=== PATIENT | female | born 2000 | race African-American/Black ===

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

== ENCOUNTER 2021-04-03 10:53 | Emergency (ER) | payer OTHER ==
[~2021-04-03] VITALS: Ht 160 cm; Wt 83.4 kg
[~2021-04-03 10:53] MED LIST changes: +AMOXICILLIN500 MG PO
[2021-04-03 12:19] LABS: URINE BILIRUBIN - DIPSTICK NEGATIVE (NEGATIVE); URINE BLOOD DIPSTICK NEGATIVE (NEGATIVE); URINE COLOR YELLOW; URINE GLUCOSE - DIPSTICK NEGATIVE (NEGATIVE); URINE KETONE NEGATIVE (NEGATIVE); URINE LEUK ESTERASE NEGATIVE (NEGATIVE); URINE NITRITE - DIPSTICK NEGATIVE (Negative); URINE PROTEIN - DIPSTICK NEGATIVE (NEG-TRACE); URINE SPECIFIC GRAVITY <=1.005; URINE UROBILINOGEN - DIPSTICK 0.2 E.U./dL (0.2)
[2021-04-03 14:21] VITALS: BP 128/89
== END 2021-04-03 14:23 | disposition home or self-care (01) | DRG 563 ==
LOC: ED 10:53
PROVIDERS: Emergency Medicine
DX: S39.012A Strain of muscle, fascia and tendon of lower back, initial encounter (principal); V49.40XA Driver injured in collision with unspecified motor vehicles in traffic accident, initial encounter

== ENCOUNTER 2021-10-25 00:47 | Emergency (ER) | payer SELFPAY ==
[~2021-10-25] VITALS: Ht 160 cm; Wt 82.0 kg
[2021-10-25 00:54] VITALS: BP 132/87
[2021-10-25 01:00] VITALS: BP 136/76
[2021-10-25 01:30] VITALS: BP 131/72
[2021-10-25 01:35] LABS: HEMATOCRIT 35.3 % (37.0-47.0); HEMOGLOBIN 11.1 g/dl (12.0-16.0); IMMATURE GRANULOCYTES 0.4 % (0.0-5.0); MEAN CORPUSCULAR HGB CONC 31.4 g/dL CAL (32.0-36.0); NEUT# 4.79 thou/uL (2.00-7.15); RED BLOOD COUNT 3.83 mill/uL (4.20-5.60); RED CELL DISTRI WIDTH 12.9 % (11.5-15.5)
[2021-10-25 01:40] LABS: MEAN CELL VOLUME 92.2 fL CALC (80.0-100.0)
[2021-10-25 01:59] VITALS: BP 131/72
== END 2021-10-25 02:06 | disposition home or self-care (01) | DRG 179 ==
LOC: ED 00:47
PROVIDERS: Family Medicine
DX: U07.1 COVID-19 (principal); R50.9 Fever, unspecified; R52 Pain, unspecified